=== PATIENT | male | born 1975 | race Two or more races ===

== ENCOUNTER 2019-04-24 15:48 | Emergency (ER) | payer SELFPAY ==
[~2019-04-24] VITALS: Ht 188 cm; Wt 112.4 kg
[2019-04-24] MEDS ORDERED: HYDR25TA6 PO (16:10)
[2019-04-24] MEDS ORDERED: LISI-167 PO (16:10)
[2019-04-24] MEDS ORDERED: OMEP20TA62 PO (16:10)
--- NOTE | 2019-04-24 16:12 | NUR ---
PT TO ED FOR N/V X3 DAYS. PT STATES UNABLE TO EAT OR DRINK ANYTHING AT THIS TIME. VSS. NO NEEDS EXPRESSED. AWAITING EDMD ASSESSMENT.
--- NOTE | 2019-04-24 16:21 | NUR ---
BREAK RN: PT UPRIGHT ON GURNEY AWAKE & COMFORTABLE, WATCHING TV, RESPONDS APPROP TO STAFF, NAD, NO NEEDS AT THIS TIME, CALL LIGHT WITHIN REACH.
[2019-04-24] MEDS ORDERED: ONDANSETRON ODT 4 MG ONE (16:43)
[2019-04-24 16:58] LABS: MICROSCOPIC NOT IND
[2019-04-24] MEDS ORDERED: ONDANSETRON ODT 4 MG PO ONE (17:00)
[2019-04-24 17:03] VITALS: BP 112/73
--- NOTE | 2019-04-24 17:04 | NUR ---
PT RESTING IN ROOM. VSS. PT ABLE TO DRINK WATER WTIHOUT N/V. NO NEEDS EXPRESSED. AWAITING RESULTS.
[2019-04-24 17:06] LABS: ALANINE AMINOTRANSFERASE 50 U/L (12-78); ALBUMIN 3.9 g/dL (3.4-5.0); ANION GAP 6 mmol/L (5-15); CHLORIDE 109 mmol/L (98-107); CREATININE 0.92 mg/dL (0.7-1.3)
[2019-04-24 17:07] LABS: CULTURE INDICATED? NO
[2019-04-24 17:08] LABS: BASOPHILS # (AUTO) 0.06 x10^3/uL (0-0.1); BASOPHILS % (AUTO) 1 % (0-1); EOSINOPHILS # (AUTO) 0.08 x10^3/uL (0-0.4); EOSINOPHILS % (AUTO) 1 % (1-7); LYMPHOCYTES # (AUTO) 3.81 x10^3/uL (1-3.4); LYMPHOCYTES % (AUTO) 33 % (22-44); MD NO; MEAN CORPUSCULAR HEMOGLOBIN 33.5 pg (27.5-34.5); MEAN CORPUSCULAR HGB CONC 33.7 g/dL (33.2-36.2); MEAN CORPUSCULAR VOLUME 99.4 fL (81-97); MEAN PLATELET VOLUME 9.6 fL (7.4-10.4); MONOCYTES # (AUTO) 0.79 x10^3/uL (0.2-0.8); MONOCYTES % (AUTO) 7 % (2-9); NEUTROPHILS # (AUTO) 6.69 x10^3/uL (1.8-6.8); NEUTROPHILS % (AUTO) 59 % (42-75); PLATELET COUNT 197 x10^3/uL (130-400); RED BLOOD COUNT 4.76 x10^6/uL (4.38-5.82); RED CELL DISTRIBUTION WIDTH 14.5 % (9.4-14.8)
[2019-04-24 17:10] LABS: ALKALINE PHOSPHATASE 74 U/L (45-117); BILIRUBIN,TOTAL 0.7 mg/dL (0.2-1.0); CREATINE KINASE, TOTAL 171 U/L (39-308); TOTAL PROTEIN 7.5 g/dL (6.4-8.2)
--- NOTE | 2019-04-24 17:42 | NUR ---
pt provided with extra diet tray. pt very appreciative. pt able to keep down po fluids and food. vss. no other needs expressed.
== END 2019-04-24 18:02 | disposition home or self-care (01) ==
LOC: ED 17:51
DX: R11.2 Nausea with vomiting, unspecified (principal); R19.7 Diarrhea, unspecified; M79.18 Myalgia, other site; Z76.0 Encounter for issue of repeat prescription
CPT/HCPCS: 36415; 80053; 81003; 82550; 83690; 85025; 99283; Q0162